=== PATIENT | female | born 1960 | race Two or more races ===

== ENCOUNTER 2025-01-15 18:31 | Emergency (ER) | payer MEDICARE, OTHER ==
[~2025-01-15] VITALS: Ht 160 cm; Wt 78.0 kg
[2025-01-15 19:12] LABS: PLATELET COUNT (AUTO) 279 K/uL (150-450); RED BLOOD CELL COUNT(AUTO) 3.85 MIL/uL (4.0-5.2); RED CELL DISTRIBUTION WIDTH 13.0 % (11.5-15.0); WHITE BLOOD COUNT (AUTO) 12.6 K/uL (4.3-11.0)
[2025-01-15 19:15] LABS: ACETONE, SERUM NEGATIVE (NEGATIVE); CALCIUM, SERUM 9.3 mg/dL (8.5-10.1); CREATININE 1.1 mg/dL (0.6-1.3); SODIUM SERUM 131 mmol/L (136-145); UREA NITROGEN, BLOOD 27 mg/dL (7-18)
[2025-01-15 19:25] LABS: ABG BASE EXCESS -0.2 mmol/L (-2.0-3.0); ABG OXYGEN SATURATION 94.8 % (94.0-98.0); ABG PCO2 34.0 mmHg (32.0-45.0); ABG PH 7.452 (7.350-7.450); ABG PO2 78.9 mmHg (83.0-108.0); ABG TOTAL HEMOGLOBIN 12.4 G/dL (12.0-16.0); FRACTIONATED INSPIRED OXYGEN 21.0 %; SITE, ABG RIGHT RADIAL
[2025-01-15] MEDS ORDERED: INSULIN REGULAR, HUMAN 100 UNIT/ML 10 ML VIAL ONE (19:34)
[2025-01-15] MEDS: INSULIN REGULAR, HUMAN 100 UNIT/ML 10 ML VIAL SQ ONE (19:36)
[2025-01-15 19:55] LABS: APPEARANCE,URINE CLEAR (CLEAR); BLOOD, URINE NEGATIVE Ery/uL (NEGATIVE); LEUKOCYTE ESTERASE ,URINE NEGATIVE (NEGATIVE); NITRITE, URINE NEGATIVE (NEGATIVE); UGLUCOSE 3+ mg/dL (NEGATIVE)
[2025-01-15 20:14] LABS: ADD URINE CULTURE NO; SQUAMOUS EPITHELIAL CELL,UR 0-2 /HPF (None Seen)
[2025-01-15 23:36] VITALS: BP 124/68; TEMP 98; O2SAT 98
== END 2025-01-15 23:36 ==
LOC: ER 18:41
DX: E11.65 Type 2 diabetes mellitus with hyperglycemia (principal); E78.5 Hyperlipidemia, unspecified; F03.90 Unspecified dementia, unspecified severity, without behavioral disturbance, psychotic disturbance, mood disturbance, and anxiety; F20.9 Schizophrenia, unspecified; I10 Essential (primary) hypertension; K21.9 Gastro-esophageal reflux disease without esophagitis
CPT/HCPCS: 99285; 82803; 85025; 80048; 82010; 81001; 36415; 82962; 36600; J1815

== ENCOUNTER 2025-04-09 14:04 | Emergency (ER) | payer MEDICARE, OTHER ==
[~2025-04-09] VITALS: Ht 160 cm; Wt 79.4 kg
[2025-04-09] MEDS ORDERED: LIDOCAINE HCL/MPF 1% 30 ML VIAL IJ ONE (14:40)
[2025-04-09] MEDS: LIDOCAINE HCL/PF 1% 30 ML VIAL TP ONE (14:48)
[2025-04-09] MEDS ORDERED: BACI/NEOM/POLY B OINT PKT 1 UDPKT PACKET ONE (14:49)
[2025-04-09] MEDS: BACI/NEOM/POLY B OINT PKT 1 UDPKT PACKET TP ONE (14:49)
[2025-04-09] MEDS ORDERED: MUPI1OIN5 TP (15:08)
[2025-04-09] MEDS ORDERED: CLIN300C12 PO (15:08)
[2025-04-09] MEDS ORDERED: PETR1BAN16 TP (15:09)
[2025-04-09 18:07] VITALS: BP 130/70; TEMP 97.9; O2SAT 97
== END 2025-04-09 18:09 ==
LOC: ER 14:10
DX: S91.201A Unspecified open wound of right great toe with damage to nail, initial encounter (principal); E11.9 Type 2 diabetes mellitus without complications; E78.5 Hyperlipidemia, unspecified; F03.90 Unspecified dementia, unspecified severity, without behavioral disturbance, psychotic disturbance, mood disturbance, and anxiety; F20.9 Schizophrenia, unspecified; I10 Essential (primary) hypertension; K21.9 Gastro-esophageal reflux disease without esophagitis; Z87.2 Personal history of diseases of the skin and subcutaneous tissue; W23.1XXA Caught, crushed, jammed, or pinched between stationary objects, initial encounter; Y93.89 Activity, other specified; Y92.89 Other specified places as the place of occurrence of the external cause; Y99.8 Other external cause status
CPT/HCPCS: 99284; 11730; J3490

== ENCOUNTER 2025-05-29 15:56 | Inpatient (IN) | payer MEDICARE, OTHER ==
[~2025-05-29] VITALS: Ht 160 cm; Wt 77.6 kg
[~2025-05-29 15:56] MED LIST: CLIN300C12 PO; MUPI1OIN5 TP; PETR1BAN16 TP
[2025-05-29 16:48] LABS: FRACTIONATED INSPIRED OXYGEN-V 21.0 %; SITE, VBG VBG - N/A; VBG BASE EXCESS 0.7 mmol/L (-2.0-3.0); VBG HCO3 26.1 mmol/L (22.0-29.0); VBG MetHb 0.3 % (0.5-1.5); VBG OXYGEN SATURATION 72.2 % (60.0-85.0); VBG PCO2 44.9 mmHg (38.0-54.0); VBG PH 7.383 (7.320-7.430); VBG PO2 40.5 mmHg (23.0-48.0); VBG TOTAL HEMOGLOBIN 12.9 G/dL (12.0-16.0)
[2025-05-29] MEDS: IV NS 0.9% 1,000 ML BAG IV ONE (16:50)
[2025-05-29] MEDS ORDERED: GLUC1KIT IJ (17:14)
[2025-05-29] MEDS ORDERED: INSU100V7 SQ (17:14)
[2025-05-29] MEDS ORDERED: MAGN400O6 PO (17:14)
[2025-05-29] MEDS ORDERED: OMEP20CA15 PO (17:14)
[2025-05-29] MEDS ORDERED: ACET325T53 PO (17:14)
[2025-05-29] MEDS ORDERED: OLME20TA23 PO (17:14)
[2025-05-29] MEDS ORDERED: NA P133E RC (17:14)
[2025-05-29] MEDS ORDERED: FENO48TA PO (17:14)
[2025-05-29] MEDS ORDERED: CRAN300T PO (17:14)
[2025-05-29] MEDS ORDERED: LEVE500T20 PO (17:14)
[2025-05-29] MEDS ORDERED: INSU100I4 SQ ×4 (17:14)
[2025-05-29] MEDS ORDERED: BISA10SU11 RC (17:14)
[2025-05-29] MEDS ORDERED: ATOR10TA PO (17:14)
[2025-05-29] MEDS ORDERED: SENN-291 PO (17:14)
[2025-05-29] MEDS ORDERED: DULA1.5P SQ (17:14)
[2025-05-29] MEDS ORDERED: HALO2TAB2 PO (17:14)
[2025-05-29 17:17] LABS: PLATELET COUNT (AUTO) 272 K/uL (150-450); RED BLOOD CELL COUNT(AUTO) 3.75 MIL/uL (4.0-5.2); RED CELL DISTRIBUTION WIDTH 13.2 % (11.5-15.0); WHITE BLOOD COUNT (AUTO) 7.8 K/uL (4.3-11.0)
[2025-05-29 17:37] LABS: CALCIUM, SERUM 9.2 mg/dL (8.5-10.1); CREATININE 1.3 mg/dL (0.6-1.3); SODIUM SERUM 129.0 mmol/L (136-145); UREA NITROGEN, BLOOD 24.0 mg/dL (7-18)
[2025-05-29] MEDS ORDERED: INSULIN REGULAR, HUMAN 100 UNIT/ML 10 ML VIAL ONE ×2 (17:45→23:08)
[2025-05-29] MEDS: INSULIN REGULAR, HUMAN 100 UNIT/ML 10 ML VIAL SQ ONE (17:51)
[2025-05-29] MEDS ORDERED: DEXTROSE 50%-WATER 50 ML DISP.SYRIN IV PRN (18:00)
[2025-05-29] MEDS ORDERED: ACETAMINOPHEN 325 MG TABLET PO PRN (18:00)
[2025-05-29] MEDS ORDERED: Z GUARD REMEDY 4 OZ OINT TP PRN (18:00)
[2025-05-29] MEDS ORDERED: MAGNESIUM HYDROXIDE 30 ML UDC PO PRN ×2 (18:00)
[2025-05-29] MEDS ORDERED: MAG HYDROX/AL HYDROX/SIMETH 30 ML UDC PO PRN (18:00)
[2025-05-29] MEDS ORDERED: ONDANSETRON HCL/PF 4 MG/2 ML VIAL IVP PRN (18:00)
[2025-05-29 18:12] LABS: APPEARANCE,URINE CLEAR (CLEAR); BLOOD, URINE NEGATIVE Ery/uL (NEGATIVE); LEUKOCYTE ESTERASE ,URINE NEGATIVE (NEGATIVE); NITRITE, URINE NEGATIVE (NEGATIVE); UGLUCOSE 3+ mg/dL (NEGATIVE)
[2025-05-29 18:16] LABS: ADD URINE CULTURE NO; SQUAMOUS EPITHELIAL CELL,UR 0-2 /HPF (None Seen)
[2025-05-29] MEDS: HALOPERIDOL 1 MG TABLET PO SCH (21:00)
[2025-05-29] MEDS: LEVETIRACETAM (250 MG) 250 MG TABLET PO SCH (21:00)
[2025-05-29 21:49] VITALS: O2SAT 99
[2025-05-29] MEDS: ATORVASTATIN 10 MG TABLET PO SCH (22:00)
[2025-05-29] MEDS: PANTOPRAZOLE 40 MG TABLET.DR PO SCH (22:00)
[2025-05-29] MEDS: SENNOSIDES/DOCUSATE SODIUM 1 UDTAB TABLET PO SCH (22:00)
[2025-05-29] MEDS: BLOOD SUGAR DIAGNOSTIC 1 EACH STRIP IN SCH (23:00)
[2025-05-29] MEDS: INSULIN REGULAR, HUMAN 100 UNIT/ML 3 ML VIAL SQ PRN (23:12)
[2025-05-30 00:07] VITALS: BP 117/74; TEMP 97.7; O2SAT 99
[2025-05-30] MEDS: IV NS 0.9% 1,000 ML IV PRN (01:54)
[2025-05-30 02:02] VITALS: BP 117/74; TEMP 97.7
[2025-05-30 04:00] VITALS: BP 104/60; TEMP 97.5; O2SAT 95
[2025-05-30 06:37] LABS: PLATELET COUNT (AUTO) 257 K/uL (150-450); RED BLOOD CELL COUNT(AUTO) 3.67 MIL/uL (4.0-5.2); RED CELL DISTRIBUTION WIDTH 12.9 % (11.5-15.0); WHITE BLOOD COUNT (AUTO) 6.1 K/uL (4.3-11.0)
[2025-05-30 06:46] LABS: CALCIUM, SERUM 9.0 mg/dL (8.5-10.1); CREATININE 1.0 mg/dL (0.6-1.3); PHOSPHORUS 3.2 mg/dL (2.5-4.9); SODIUM SERUM 136.0 mmol/L (136-145); UREA NITROGEN, BLOOD 22.0 mg/dL (7-18)
[2025-05-30 08:30] VITALS: BP 104/50; TEMP 97.7; O2SAT 99
[2025-05-30] MEDS: INSULIN GLARGINE, 100 UNIT/ML CARTRIDGE SQ SCH (08:46)
[2025-05-30] MEDS: LOSARTAN POTASSIUM 50 MG TABLET PO SCH (08:47)
[2025-05-30] MEDS: HALOPERIDOL 1 MG TABLET PO SCH (08:52)
[2025-05-30 16:00] VITALS: BP 118/76; TEMP 97.7; O2SAT 95
[2025-05-30 20:00] VITALS: BP 121/69; TEMP 97.9; O2SAT 96
[2025-05-30] MEDS: SENNOSIDES/DOCUSATE SODIUM 1 TAB TABLET PO SCH (21:32)
[2025-05-31 08:00] VITALS: BP 126/62; TEMP 97.5; O2SAT 99
[2025-05-31 16:00] VITALS: BP 128/74; TEMP 97.3; O2SAT 100
[2025-05-31 20:00] VITALS: BP 108/71; TEMP 97.5; O2SAT 96
[2025-06-01 08:18] VITALS: BP 126/62; TEMP 97.7; O2SAT 96
[2025-06-01 08:49] VITALS: BP 126/62
[2025-06-01] MEDS ORDERED: SENN1TAB6 PO (13:03)
== END 2025-06-01 15:25 | DRG 637 ==
LOC: ER 16:00 → TELE 23:30 → MED 05-30 04:00
PROVIDERS: ADMIT Nurse Practitioner Acute Care; ATTEND Nurse Practitioner Acute Care
DX: E11.65 Type 2 diabetes mellitus with hyperglycemia (principal); G93.41 Metabolic encephalopathy; Z66 Do not resuscitate; I10 Essential (primary) hypertension; F03.90 Unspecified dementia, unspecified severity, without behavioral disturbance, psychotic disturbance, mood disturbance, and anxiety; E66.9 Obesity, unspecified; F29 Unspecified psychosis not due to a substance or known physiological condition; G40.909 Epilepsy, unspecified, not intractable, without status epilepticus; E87.1 Hypo-osmolality and hyponatremia; E86.0 Dehydration; E86.1 Hypovolemia; E78.5 Hyperlipidemia, unspecified; F20.9 Schizophrenia, unspecified; Z86.19 Personal history of other infectious and parasitic diseases; Z79.4 Long term (current) use of insulin; Z79.85 Long-term (current) use of injectable non-insulin antidiabetic drugs; Z79.899 Other long term (current) drug therapy; Z68.30 Body mass index [BMI] 30.0-30.9, adult; E86.9 Volume depletion, unspecified
CPT/HCPCS: 36415; 71045-TC; 80048-TC; 81001; 82010-TC; 82803-TC; 82962-TC; 83735-TC; 84100-TC; 85025-TC; 87081-TC; 97116-TC; 97530-TC; A4223; G0378; J1815; J7030